=== PATIENT | male | born 1960 | race Caucasian/White ===

== ENCOUNTER → 2016-06-20 | Outpatient (CLI) | payer MEDICARE, OTHER ==
[~2016-06-20] MED LIST: ASPIRIN CHEWABL81 MG PO; BENADRYL 25MG C25 MG PO; CYMBALTA60 MG PO; DAKIN'S SOLUTI500 ML IR; DITROPAN 5 MG TA5 MG PO; HABITROL 14 MG P1 EA TD; LEVEMIR100 UNIT/1 SQ; LIORESAL TAB 1010 MG PO; LORTAB 7.5-3251 EACH PO; NEURONTIN 400400 MG PO; NOVOLOG100 UNIT/1 SC; PREDNISONE10 MG PO; PRILOSEC OTC20 MG PO; PROVENTIL HFA 61 INH INH; RAMIPRIL2.5 MG PO; ROCEPHIN 22 G/50 ML IV; SPIRIVA18 MCG INH; VENTOLIN/PROVE0.5 ML INH; VICTOZA 1818 MG/3 ML SC; VITAMIN C 500500 MG PO; VITAMIN D31000 UNIT PO; ZAROXOLYN/DIUL2.5 MG PO; ZOCOR20 MG PO
== END ==
LOC: NM 07:48
DX: S91.002A Unspecified open wound, left ankle, initial encounter (principal)
CPT/HCPCS: 78315; A9503

== ENCOUNTER → 2016-08-30 | Outpatient (CLI) | payer MEDICARE, OTHER ==
[~2016-08-30] VITALS: Ht 172.7 cm; Wt 117.9 kg
== END ==
LOC: OPSV 09:57
DX: Z45.2 Encounter for adjustment and management of vascular access device (principal); B96.4 Proteus (mirabilis) (morganii) as the cause of diseases classified elsewhere; E11.65 Type 2 diabetes mellitus with hyperglycemia; Z72.0 Tobacco use; I73.9 Peripheral vascular disease, unspecified; J96.12 Chronic respiratory failure with hypercapnia; J44.9 Chronic obstructive pulmonary disease, unspecified; L89.154 Pressure ulcer of sacral region, stage 4; L89.892 Pressure ulcer of other site, stage 2; M62.3 Immobility syndrome (paraplegic)
CPT/HCPCS: 96365; J2185; J7050

== ENCOUNTER → 2020-07-01 | Outpatient (CLI) | payer MEDICARE | LOC: LBRF 19:28 | DX: N39.0 Urinary tract infection, site not specified (principal); Z87.440 Personal history of urinary (tract) infections | CPT/HCPCS: 81001; 87077; 87086; 87186 ==

== ENCOUNTER → 2021-04-27 | Outpatient (CLI) | payer MEDICARE ==
[2021-04-27 11:51] LABS: HEMOGLOBIN 16.7 gm/dl (14.0-17.5); RED BLOOD COUNT 5.76 M/UL (4.20-5.50); WHITE BLOOD COUNT 10.2 K/UL (4.5-11.0)
[2021-04-27 12:16] LABS: BUN/CREATININE RATIO 19 (0-10)
== END ==
LOC: LBRF 11:12
PROVIDERS: Nurse Practitioner Family
DX: Z43.5 Encounter for attention to cystostomy (principal); I25.10 Atherosclerotic heart disease of native coronary artery without angina pectoris; J39.0 Retropharyngeal and parapharyngeal abscess; E11.51 Type 2 diabetes mellitus with diabetic peripheral angiopathy without gangrene; R32 Unspecified urinary incontinence; J44.9 Chronic obstructive pulmonary disease, unspecified; J96.12 Chronic respiratory failure with hypercapnia; E11.42 Type 2 diabetes mellitus with diabetic polyneuropathy
CPT/HCPCS: 80053; 80061; 84443; 85025